=== PATIENT | female | born 1965 | race African-American/Black ===

== ENCOUNTER 2018-11-14 18:00 | Emergency (ER) | payer OTHER ==
[~2018-11-14] VITALS: Ht 170.2 cm; Wt 120.0 kg
[~2018-11-14 18:00] MED LIST: HYDROMORPHONE; LORAZAPAM PO; OXYBUTYNIN PO; OXYC80TA40; TOPA25 PO; TRAZADONE PO; VENLAFAXINE PO; [UNRECOGNIZED DRUG - OTHER]; [UNRECOGNIZED DRUG - OTHER]; [UNRECOGNIZED DRUG - OTHER] PO
[2018-11-14] MEDS ORDERED: OXYC-100 PO (18:10)
[2018-11-14 20:24] LABS: BASOPHILS % 0.5 % (0.0-2.0); EOSINOPHILS % 1.7 % (0.0-5.0); HEMOGLOBIN. 11.2 g/dL (12.0-16.0); LYMPHOCYTES % 35.9 % (20.0-50.0); MEAN CORPUSCULAR HEMOGLOBIN 28.1 pg (28.0-32.0); MEAN CORPUSCULAR VOLUME 85.5 fL (81.0-99.0); MEAN PLATELET VOLUME 9.2 fl (7.4-10.4); MONOCYTES % 8.5 % (2.0-8.0); NEUTROPHILS % 53.4 % (40.0-76.0); PLATELET 216 x1000/uL (130-400); RED BLOOD CELL COUNT 3.98 mill/uL (4.2-5.4); RED CELL DISTRIBUTION WIDTH 15.9 % (11.6-14.6)
[2018-11-14 20:31] LABS: CHLORIDE 112 mEq/L (98-107)
[2018-11-14 20:34] LABS: ETHANOL BLOOD < 10 mg/dL
[2018-11-14 20:34] LABS: CLARITY URINE CLEAR (CLEAR); COLOR URINE YELLOW (YELLOW); KETONES URINE NEGATIVE (NEGATIVE); LEUKOCYTE ESTERASE URINE NEGATIVE (NEGATIVE); NITRITE URINE NEGATIVE (NEGATIVE); OCCULT BLOOD URINE NEGATIVE (NEGATIVE); PROTEIN URINE NEGATIVE (NEGATIVE); SPECIFIC GRAVITY URINE 1.013 (1.005-1.030)
[2018-11-14 20:38] LABS: CREATINE KINASE 56 IU/L (26-192)
[2018-11-14 20:46] LABS: *AMPHETAMINES SCREEN URINE NEGATIVE (NEGATIVE); *BARBITURATES SCREEN URINE NEGATIVE (NEGATIVE); *BENZODIAZEPINES SCREEN URINE PRESUMTIVE POSITIVE (NEGATIVE); *COCAINE SCREEN URINE NEGATIVE (NEGATIVE); CANNABINOID URINE SCREEN PRESUMTIVE POSITIVE (NEGATIVE); METHADONE URINE SCREEN NEGATIVE (NEGATIVE); OPIATES URINE SCREEN PRESUMTIVE POSITIVE (NEGATIVE); PHENCYCLIDINE URINE SCREEN NEGATIVE (NEGATIVE)
[2018-11-14] MEDS ORDERED: KETOROLAC 15MG/ML VIAL IV ONE (22:15)
[2018-11-14 23:50] VITALS: BP 141/98
== END 2018-11-15 00:09 | disposition home or self-care (01) ==
LOC: ER 18:10
DX: T40.2X1A Poisoning by other opioids, accidental (unintentional), initial encounter (principal); T42.4X1A Poisoning by benzodiazepines, accidental (unintentional), initial encounter; Y92.89 Other specified places as the place of occurrence of the external cause
CPT/HCPCS: 36415; 70450; 71045; 80053; 80305; 80307; 80320; 80329; 81003; 82140; 82550; 82962; 85025; 93005; 96374; 99284; J1885; G0480